=== PATIENT | female | born 1980 | race Caucasian/White ===

== ENCOUNTER 2017-12-20 01:19 | Emergency (ER) | payer BC ==
[2017-12-20] MEDS ORDERED: Metoclopramide 10 MG/2 ML SDV IM ONE (01:51)
[2017-12-20] MEDS ORDERED: Ketorolac 60 MG/2 ML SDV IM ONE (01:51)
--- NOTE | 2017-12-20 03:27 | ER ---
DATE SEEN: 12/20/2017 TIME SEEN: 0200 hours. REASON FOR VISIT: Headache. HISTORY OF PRESENT ILLNESS: This is a 37-year-old female with a headache. This is a fairly sudden onset about 2 hours ago, moderate to severe in intensity, gets worse with standing up, better with recumbency. She had mild nausea, but no fever. Has not taken anything to relieve the pain. Has no previous headache of this nature. PAST MEDICAL HISTORY: -induced hypertension. She was started on Procardia yesterday. She also had delivery, vaginal, about 2-1/2 weeks ago. CURRENT MEDICATIONS: Please see the nurse's notes. These include: 1. vitamins. 2. Nifedipine. ALLERGIES: None. SOCIAL HISTORY: Nonsmoker. She is . REVIEW OF SYSTEMS: She does not have any photosensitivity, neck pain or stiffness, but did have sleep deprivation (she has a ). PHYSICAL EXAMINATION: VITAL SIGNS: Blood pressure is normal, 140/86; temperature is 97.5. ENT: Negative. HEAD: Normal size. EYES: Pupils are equal and reactive to light with normal extraocular movements. NEUROLOGIC: Cranial nerves are grossly intact. Mental status alert. Answers questions well. LAB STUDIES: None. IMPRESSION: Headache. PLAN: 1. I gave her ketorolac and Reglan. 2. I considered the differential diagnosis that includes, but not limited to subarachnoid hemorrhage, tension headache, sudden intracranial hypotension in the light of a recent delivery. She improved when she lied down and ketorolac seemed to help some. I discharged her home, but ordered an MRI to be done in the morning to further delineate the causes of this recent new headache. I advised her to come back to the emergency room tonight if symptoms get worse. /[id number] SEVERINO/JAMIE
== END 2017-12-20 02:33 | disposition home or self-care (01) ==
LOC: FB.ED 01:19
DX: R51 Headache (principal)
CPT/HCPCS: 96372; 99283; J1885; J2765

== ENCOUNTER 2019-04-08 07:35 | Day surgery (SDC) | payer BC ==
[~2019-04-08 07:35] MED LIST: Lactated Ringers 1,000 ML IV SCH; Sodium Chloride 0.9% 10 ML Syringe FLUSH PRN
[2019-04-08] MEDS ORDERED: Propofol 200 MG/20 ML SDV IV ONE (07:36)
--- NOTE | 2019-04-08 09:14 | PCM.OPNOTE ---
- General Post-Op/Procedure Note Date of Surgery/Procedure: 04/08/19 Operative Procedure(s): c scope with bx Findings: scattered diverticuli sigmoid and descending colon polyp sigmoid colon Pre Op Diagnosis: hx of diverticulitis Post-Op Diagnosis: diverticulosis sigmoid and descending colon. polyp sigmoid colon Anesthesia Technique: MAC Primary Surgeon: Mainor Causey Anesthesia Provider: Allan Anne Pathology: colon polyp Complications: None Condition: Good Free Text/Narrative:: see dictation
--- NOTE | 2019-04-08 13:27 | OR ---
DATE OF OPERATION: 04/08/2019 SURGEON: Mainor Causey MD PROCEDURE PERFORMED: Colonoscopy with cold forceps biopsy. PREOPERATIVE DIAGNOSIS: History of diverticulosis. POSTOPERATIVE DIAGNOSIS: Scattered diverticula of the descending and sigmoid colon and a polyp of the sigmoid colon. INDICATIONS FOR PROCEDURE: This is a 38-year-old white female, who had episodes of some diverticulitis several months ago. She presents now for followup colonoscopy to evaluate to ensure there was no other underlying disease process. She was offered and accepted same. DESCRIPTION OF OPERATION: After an excellent IV sedation was administered, digital rectal exam was performed. No marked abnormality was noted. The flexible colonoscope was inserted and advanced to cecum. Prep was excellent. The following findings were noted: Ascending colon, unremarkable. Transverse colon, unremarkable. Descending colon, occasional small shallow diverticula was noted. Sigmoid, occasional small scattered diverticula was noted as well as a small hyperplastic appearing polyp at approximately 20 cm. This was biopsied with cold biopsy forceps and sent for permanent. The rectum was unremarkable. The patient tolerated the procedure well, was taken to recovery room in good condition. Results by letter. /[id number] /MODL
== END 2019-04-08 10:45 | disposition home or self-care (01) ==
LOC: FB.SDS 07:35
PROVIDERS: ATTEND Surgery
DX: K57.30 Diverticulosis of large intestine without perforation or abscess without bleeding (principal); D12.5 Benign neoplasm of sigmoid colon; E66.01 Morbid (severe) obesity due to excess calories; Z90.49 Acquired absence of other specified parts of digestive tract; Z68.41 Body mass index [BMI] 40.0-44.9, adult
CPT/HCPCS: 81025; 88305; J2704; J7120